=== PATIENT | male | born 1980 | race African-American/Black ===

== ENCOUNTER 2022-04-04 02:27 | Emergency (ER) | payer SELFPAY ==
[~2022-04-04] VITALS: Ht 175.3 cm; Wt 68.2 kg
[2022-04-04 02:30] VITALS: TEMP 98
[2022-04-04 03:38] VITALS: BP 139/89; PULSE 58
== END 2022-04-04 03:41 | disposition home or self-care (01) ==
LOC: COL.ER 02:27
DX: G44.009 Cluster headache syndrome, unspecified, not intractable (principal); F17.200 Nicotine dependence, unspecified, uncomplicated; Z28.310 Unvaccinated for COVID-19
CPT/HCPCS: J0780; J1100; J1885

== ENCOUNTER 2022-05-20 12:24 | Emergency (ER) | payer SELFPAY ==
[~2022-05-20] VITALS: Ht 165.1 cm; Wt 68.2 kg
[2022-05-20 12:44] VITALS: TEMP 98.3
[2022-05-20 13:15] LABS: COLLECTION METHOD CLEAN CATCH
[2022-05-20 13:18] VITALS: BP 127/67; PULSE 65
[2022-05-20 13:20] LABS: URINE APPEARANCE Clear (CLEAR/HAZY); URINE BLOOD Negative (NEGATIVE); URINE COLOR Yellow (YELLOW); URINE GLUCOSE Negative (NEGATIVE); URINE KETONE Negative (NEGATIVE); URINE NITRATE Negative (NEGATIVE); URINE PROTEIN(semi-quant) Negative (NEGATIVE); URINE UROBILINOGEN 0.2 E.U/dL (0.2-1.0)
[2022-05-20 13:43] LABS: MUCOUS Present (NOT PRESENT); SQUAMOUS EPITHELIAL 0-2 /hpf (0-10); URINE BACTERIA Rare /hpf (NONE SEEN); URINE RBC 0-2 /hpf (0-2)
== END 2022-05-20 13:18 | disposition home or self-care (01) ==
LOC: COL.ER 12:24
PROVIDERS: Physician Assistant
DX: Z20.2 Contact with and (suspected) exposure to infections with a predominantly sexual mode of transmission (principal); Z28.310 Unvaccinated for COVID-19
CPT/HCPCS: J0696